=== PATIENT | male | born 1990 ===

== ENCOUNTER 2022-01-20 08:23 | Emergency (ER) | payer SELFPAY ==
[2022-01-20 09:25] LABS: Bacteria/HPF None Seen HPF (None Seen); Bilirubin Negative (Negative); Blood, Urine Negative (Negative); Clarity Clear (Clear); Glucose, Urine (Dipstick) Normal (Negative); Ketone, Urine Trace mg/dL (Negative); Leukocyte 75 Leu/uL (Negative); Nitrite Negative (Negative); Protein, Urine (Dipstick) 50 mg/dL (Neg-Trace); RBC/HPF 0-3 HPF (0-3); Specific Gravity, Urine 1.036 (1.002-1.036); Squamous Epithelial 0-3 HPF (0-3)
[2022-01-20 14:38] LABS: Syphilis Antibody Index 22.06 S/CO (<1.00 Non-Reactive)
[2022-01-20 17:02] LABS: Syphilis Antibody REACTIVE (Nonreactive)
[2022-01-20 18:10] LABS: Chlam.trachomatis by PCR,Urine Not Detected (NotDetected)
== END 2022-01-20 10:24 | disposition home or self-care (01) ==
LOC: ERS 08:23
DX: S39.840A Fracture of corpus cavernosum penis, initial encounter (principal); M95.11 Cauliflower ear, right ear; L98.9 Disorder of the skin and subcutaneous tissue, unspecified; A53.9 Syphilis, unspecified; F17.210 Nicotine dependence, cigarettes, uncomplicated; X58.XXXA Exposure to other specified factors, initial encounter
CPT/HCPCS: 36415; 81003; 81015; 86593; 86780; 87491; 87591; 99284